=== PATIENT | female | born 1965 | race Two or more races ===

== ENCOUNTER 2018-03-29 09:23 | Emergency (ER) | payer MEDICAID ==
[~2018-03-29] VITALS: Ht 154.9 cm; Wt 72.6 kg
[2018-03-29 09:31] VITALS: BP 168/88
[2018-03-29 10:10] LABS: Basophils # (auto) 0 uL; Basophils % (auto) 0.4 % (0.0-2.0); Eosinophils # (auto) 0.1 uL; Hematocrit 39.4 % (36.0-46.0); Hemoglobin 13.5 g/dL (12.2-16.2); Lymphocytes # (auto) 1.4 uL; Lymphocytes % (auto) 20.7 % (10.0-50.0); Mean Corpuscular Hemoglobin 28.4 pg (28.0-32.0); Mean Corpuscular Hgb Conc. 34.3 g/dL (32.0-36.0); Mean Corpuscular Volume 82.6 fL (80.0-100.0); Monocytes # (auto) 0.4 uL; Monocytes % (auto) 6.3 % (0.0-12.0); Neutrophils # (auto) 4.9 uL; Neutrophils % (auto) 71.6 % (37.0-80.0); Nucleated Red Blood Cells % 0.1 %; Platelet Count (auto) 229 10^3/uL (140-450); Red Blood Cells 4.77 10^6/uL (4.0-5.20); Red Cell Distribution Width 14.5 % (11.8-14.3); White Blood Cell 6.9 10^3/uL (4.4-10.8)
[2018-03-29 10:35] LABS: Alanine Aminotransferase 25 U/L (13-56); Albumin 3.7 g/dL (3.4-5.0); Alkaline Phosphatase 124 U/L (45-117); Anion Gap 9 (5-15); Aspartate Aminotransferase 20 U/L (15-37); BUN/Creatinine Ratio 22.7; Bilirubin, Total 0.2 mg/dL (0.2-1.0); Blood Urea Nitrogen 17 mg/dL (7-18); Calcium 9.4 mg/dL (8.5-10.1); Carbon Dioxide 21 mmol/L (21-32); Chloride 108 mmol/L (98-107); GFR African American 104 mL/min; GFR Non-African American 86 mL/min; Glucose 115 mg/dL (74-106); Magnesium 2.5 mg/dL (1.6-2.6); Potassium 3.8 mmol/L (3.5-5.1); Sodium 138 mmol/L (136-145); Total Protein 7.9 g/dL (6.4-8.2)
[2018-03-29] MEDS ORDERED: ONDANSETRON ODT 4 MG TAB PO ONE (11:30)
[2018-03-29] MEDS ORDERED: MECLIZINE HCL 25 MG TAB PO ONE (11:30)
== END 2018-03-29 11:47 | disposition home or self-care (01) ==
LOC: EDBD 09:23 → ER 09:23
DX: F41.1 Generalized anxiety disorder (principal)
CPT/HCPCS: 36415; 70450; 71046; 80053; 81002; 83735; 84484; 85025; 99285; J8597; Q0162

== ENCOUNTER 2022-03-11 15:31 | Inpatient (IN) | payer MEDICAID ==
[~2022-03-11] VITALS: Ht 154.9 cm; Wt 80.9 kg
[2022-03-11] MEDS ORDERED: SODIUM CHLORIDE 0.9% 1,000 ML IVB ONE (16:15)
[2022-03-11] MEDS ORDERED: MORPHINE SULFATE 4 MG/ML SYR/VIAL IV ONE (16:15)
[2022-03-11] MEDS ORDERED: ONDANSETRON HCL 4 MG/2 ML VIAL IV ONE (16:15)
[2022-03-11] MEDS ORDERED: IOHEXOL 300 MG/ML 100ML BOTTLE IJ ONE ×2 (16:22→20:58)
[2022-03-11 16:46] LABS: Urine Bacteria FEW /hpf (None Seen); Urine Blood Negative /uL (Negative); Urine Mucus FEW (None Seen); Urine WBC 2 /hpf (0 - 5)
[2022-03-11 16:52] LABS: Basophils # (auto) 0 10 ^3/uL (0-0.2); Basophils % (auto) 0.2 % (0.0-2.0); Eosinophils # (auto) 0 10 ^3/uL (0-0.8); Eosinophils % (auto) 0.3 % (0.0-7.0); Hematocrit 42.9 % (36.0-46.0); Hemoglobin 14.3 g/dL (12.2-16.2); Lymphocytes # (auto) 1.2 10 ^3/uL (0.4-5.4); Lymphocytes % (auto) 10.6 % (10.0-50.0); Mean Corpuscular Hemoglobin 28.3 pg (28.0-32.0); Mean Corpuscular Hgb Conc. 33.4 g/dL (32.0-36.0); Mean Corpuscular Volume 84.8 fL (80.0-100.0); Monocytes # (auto) 0.6 10 ^3/uL (0-1.3); Monocytes % (auto) 5.4 % (0.0-12.0); Neutrophils # (auto) 9.2 10 ^3/uL (1.6-8.6); Neutrophils % (auto) 83.5 % (37.0-80.0); Red Blood Cells 5.06 10^6/uL (4.0-5.20); Red Cell Distribution Width 13.1 % (11.8-14.3)
[2022-03-11 17:09] LABS: INR 0.96 (0.9-1.15); Partial Thromboplastin Time 29.1 sec (24.6-33.4)
[2022-03-11 17:15] LABS: Bilirubin, Total 0.4 mg/dL (0.2-1.0); Total Protein 7.7 g/dL (6.4-8.2)
[2022-03-11 17:17] LABS: BUN/Creatinine Ratio 22.7; Potassium 3.8 mmol/L (3.5-5.1)
[2022-03-11 17:18] LABS: Albumin 3.5 g/dL (3.4-5.0); Magnesium 2.3 mg/dL (1.6-2.6)
[2022-03-11] MEDS ORDERED: cefTRIAXone 1GM/50ML D5W 50 ML IV ONE (21:30)
[2022-03-11] MEDS ORDERED: metroNIDAZOLE 500MG/100ML 100 ML IV ONE (21:30)
[2022-03-12] MEDS ORDERED: ONDANSETRON HCL 4 MG/2 ML VIAL IV PRN (00:45)
[2022-03-12] MEDS ORDERED: MORPHINE SULFATE INJ 2 MG/ml SYRG IV PRN (00:45)
[2022-03-12] MEDS: SODIUM CHLORIDE 0.9% 1,000 ML IV SCH ×3 (00:51→21:17)
[2022-03-12 04:01] VITALS: BP 116/49
[2022-03-12 05:00] VITALS: BP 116/49
[2022-03-12] MEDS: metroNIDAZOLE 500MG/100ML 100 ML IV SCH ×3 (05:27→22:00)
[2022-03-12 09:00] VITALS: BP 117/60
[2022-03-12] MEDS: PANTOPRAZOLE 40 MG/10 ML VIAL INJ IV SCH (10:02)
[2022-03-12 13:00] VITALS: BP 100/42
[2022-03-12 17:00] VITALS: BP 115/55
[2022-03-12] MEDS: cefTRIAXone 1GM/50ML D5W 50 ML IV SCH (21:16)
[2022-03-12 22:00] VITALS: BP 113/53
[2022-03-13 05:00] VITALS: BP 136/68
[2022-03-13] MEDS: metroNIDAZOLE 500MG/100ML 100 ML IV SCH ×3 (05:30→21:39)
[2022-03-13 06:15] LABS: Basophils # (auto) 0 10 ^3/uL (0-0.2); Basophils % (auto) 0.5 % (0.0-2.0); Eosinophils # (auto) 0.1 10 ^3/uL (0-0.8); Eosinophils % (auto) 2.1 % (0.0-7.0); Hematocrit 36.9 % (36.0-46.0); Hemoglobin 12.1 g/dL (12.2-16.2); Lymphocytes # (auto) 1.5 10 ^3/uL (0.4-5.4); Lymphocytes % (auto) 25.7 % (10.0-50.0); Mean Corpuscular Hemoglobin 27.9 pg (28.0-32.0); Mean Corpuscular Hgb Conc. 32.7 g/dL (32.0-36.0); Mean Corpuscular Volume 85.2 fL (80.0-100.0); Monocytes # (auto) 0.6 10 ^3/uL (0-1.3); Monocytes % (auto) 10.2 % (0.0-12.0); Neutrophils # (auto) 3.7 10 ^3/uL (1.6-8.6); Neutrophils % (auto) 61.5 % (37.0-80.0); Nucleated Red Blood Cells % 0.1 %; Red Blood Cells 4.33 10^6/uL (4.0-5.20); Red Cell Distribution Width 13.1 % (11.8-14.3)
[2022-03-13 06:38] LABS: Albumin 2.7 g/dL (3.4-5.0); Calcium 9.3 mg/dL (8.5-10.1); Potassium 3.5 mmol/L (3.5-5.1)
[2022-03-13 06:42] LABS: Bilirubin, Total 0.2 mg/dL (0.2-1.0)
[2022-03-13 08:00] VITALS: BP 116/58
[2022-03-13 09:00] VITALS: BP 116/58
[2022-03-13] MEDS: PANTOPRAZOLE 40 MG/10 ML VIAL INJ IV SCH (09:37)
[2022-03-13] MEDS: SODIUM CHLORIDE 0.9% 1,000 ML IV SCH ×2 (12:31→23:49)
[2022-03-13 13:00] VITALS: BP 110/71
[2022-03-13 16:38] VITALS: BP 143/63
[2022-03-13] MEDS: cefTRIAXone 1GM/50ML D5W 50 ML IV SCH (21:07)
[2022-03-13 22:00] VITALS: BP 135/69
[2022-03-13] MEDS: CHOLESTYRAMINE 4 GM POWDER PO SCH (23:49)
[2022-03-14 05:00] VITALS: BP 137/52
[2022-03-14] MEDS: metroNIDAZOLE 500MG/100ML 100 ML IV SCH ×2 (06:15→13:45)
[2022-03-14 08:10] VITALS: BP 131/64
[2022-03-14 09:00] VITALS: BP 131/64
[2022-03-14] MEDS: PANTOPRAZOLE 40 MG/10 ML VIAL INJ IV SCH (09:50)
[2022-03-14] MEDS: SODIUM CHLORIDE 0.9% 1,000 ML IV SCH (11:40)
[2022-03-14] MEDS: CHOLESTYRAMINE 4 GM POWDER PO SCH (11:40)
[2022-03-14 13:00] VITALS: BP 151/63
[2022-03-14] MEDS ORDERED: LOPERAMIDE HCL 2 MG CAP/TAB PO ONE (14:45)
[2022-03-14] MEDS ORDERED: LOPERAMIDE HCL 2 MG CAP/TAB PO PRN (14:45)
[2022-03-14] MEDS ORDERED: AMOX-277 PO (15:34)
[2022-03-14 16:32] VITALS: BP 151/63
[2022-03-14 17:00] VITALS: BP 110/50
== END 2022-03-14 18:59 | disposition home or self-care (01) | DRG 245 ==
LOC: ER 15:31 → OVERFLOW 03-12 00:36 → WEST WING 03-12 03:23
PROVIDERS: ADMIT Nurse Practitioner; ATTEND Internal Medicine
DX: K51.00 Ulcerative (chronic) pancolitis without complications (principal); E87.2 Acidosis; E88.09 Other disorders of plasma-protein metabolism, not elsewhere classified; D72.829 Elevated white blood cell count, unspecified; E66.01 Morbid (severe) obesity due to excess calories; Z20.822 Contact with and (suspected) exposure to COVID-19; E86.0 Dehydration; Z68.33 Body mass index [BMI] 33.0-33.9, adult; Z90.12 Acquired absence of left breast and nipple
CPT/HCPCS: 36415; 74177; 80053; 81001; 83605; 83690; 83735; 85025; 85048; 85610; 85730; 87045; 87427; 87493; 96361; 96365; 96367; 96375; C9113; G0378; J0696; J2405; J3490

== ENCOUNTER 2022-05-11 13:06 | Emergency (ER) | payer MEDICAID ==
[~2022-05-11] VITALS: Ht 154.9 cm; Wt 75.0 kg
[~2022-05-11 13:06] MED LIST: AMOX-277 PO
[2022-05-11 14:13] LABS: Basophils # (auto) 0 10 ^3/uL (0-0.2); Basophils % (auto) 0.6 % (0.0-2.0); Eosinophils # (auto) 0 10 ^3/uL (0-0.8); Eosinophils % (auto) 0.5 % (0.0-7.0); Hematocrit 40.2 % (36.0-46.0); Hemoglobin 13.6 g/dL (12.2-16.2); Lymphocytes % (auto) 17.3 % (10.0-50.0); Mean Corpuscular Hemoglobin 28.5 pg (28.0-32.0); Mean Corpuscular Hgb Conc. 33.9 g/dL (32.0-36.0); Mean Corpuscular Volume 84.1 fL (80.0-100.0); Monocytes # (auto) 0.2 10 ^3/uL (0-1.3); Neutrophils # (auto) 4.7 10 ^3/uL (1.6-8.6); Neutrophils % (auto) 77.6 % (37.0-80.0); Red Blood Cells 4.78 10^6/uL (4.0-5.20); White Blood Cell 6.1 10^3/uL (4.4-10.8)
[2022-05-11 15:37] LABS: Albumin 3.8 g/dL (3.4-5.0); Calcium 10.2 mg/dL (8.5-10.1); Potassium 4.2 mmol/L (3.5-5.1)
[2022-05-11 15:41] LABS: BUN/Creatinine Ratio 19.1; Bilirubin, Total 0.2 mg/dL (0.2-1.0); Total Protein 7.7 g/dL (6.4-8.2)
[2022-05-11] MEDS ORDERED: MECLIZINE HCL 25 MG TAB PO ONE (21:45)
[2022-05-11] MEDS ORDERED: KETOROLAC TROMETH 30 MG/ML 1ML VIAL IM ONE (21:45)
[2022-05-11] MEDS ORDERED: MECL25TA18 PO (21:50)
[2022-05-11 22:20] VITALS: BP 154/73
== END 2022-05-11 21:55 | disposition home or self-care (01) ==
LOC: ER 13:06
DX: R42 Dizziness and giddiness (principal); F43.0 Acute stress reaction
CPT/HCPCS: 36415; 70496; 71045; 80053; 84484; 85025; 93005; 96372; 99285; J1885; J8597

== ENCOUNTER 2024-07-18 14:59 | Emergency (ER) | payer MEDICAID ==
[~2024-07-18] VITALS: Ht 149.9 cm; Wt 76.1 kg
[~2024-07-18 14:59] MED LIST changes: -AMOX-277 PO; +AMOX875T4 PO; +MECL-90 PO
[2024-07-18 15:59] VITALS: BP 135/65; PULSE 76; RESP 18; TEMP 97.7; O2SAT 98
--- NOTE | 2024-07-18 16:07 | ED.PDOC ---
Back pain HPI HPI Comments A 59 YEAR OLD FEMALE PRESENTS TO THE ED WITH COMPLAINT OF BACK PAIN [id number]. PER PT, PAIN BEGAN WHILE SHE WAS WASHING DISHES AND SHE SUDDENLY FELT A "PULSE" AND STARTED HAVING LOW BACK PAIN. LOW BACK PAIN IS NON-RADIATING. MOVEMENT AND PHYSICAL ACTIVITY INCREASES LOW BACK PAIN. PT DENIES TRAUMA. PATIENT DENIES DYSURIA, FLANK PAIN, FEVER, CHILLS, SHORTNESS OF BREATH, CHEST PAIN, ABDOMINAL PAIN, NAUSEA, VOMITING, HEADACHE, OR OTHER COMPLAINTS. NO OTHER SYMPTOMS OR MODIFYING FACTORS AT THIS TIME. PATIENT IS ALERT, ORIENTED X 4, AND HAS STEADY GAIT. Chief Complaint: Back Pain Time Seen by MD: 15:44 Primary Care Provider: MALLORY Reviewed Notes: Nurses Notes, Medications, Allergies Allergies: Coded Allergies: NO KNOWN ALLERGIES (Unverified , 10/31/11) Home Meds Active Scripts Meclizine Hcl (Meclizine Hcl) 25 Mg Tab, 25 MG PO BID for 7 Days, #30 MG use as needed every 6 hours Prov:BREANNA MCKINLEY MD 05/11/22 Amoxicillin & Pot Clavulanate (Amoxicillin/Potassium Cla) 875 Mg Tab, 875 MG PO BID, #20 TAB Prov:TACO WARE MD 03/14/22 Information Source: Patient, Spouse Mode of Arrival: Ambulatory Timing: Weeks Duration: Since onset, Days Location of Back pain: (B) Lower back Severity: Moderate Quality: Sharp Onset: Spontaneous History of: None Modifying Factors: Movement, Twisting, Nothing Associated signs and symptoms: Other (LOW BACK PAIN) Past Medical History PAST MEDICAL HISTORY: Cancer Surgical History: Unknown WAGON DRIVER History: No Pertinent WAGON DRIVER History Family History Family History: Unknown Social History Smoker: Non-Smoker Alcohol: Denies ETOH Use Drugs: Denies Drug Use Lives In: Home Constitutional: denies: chills, diaphoresis, fatigue, fever, malaise, sweats, weakness, others EENTM: denies: blurred vision, double vision, ear bleeding, ear discharge, ear drainage, ear pain, ear ringing, eye pain, eye redness, hearing loss, mouth pain, mouth swelling, nasal discharge, nose bleeding, nose congestion, nose pain, photophobia, tearing, throat pain, throat swelling, voice changes, others Respiratory: denies: cough, hemoptysis, orthopnea, SOB at rest, shortness of breath, SOB with excertion, stridor, wheezing, others Cardiovascular: denies: chest pain, dizzy spells, diaphoresis, Dyspnea on exertion, edema, irregular heart beat, left arm pain, lightheadedness, palpitations, PND, syncope, others Gastrointestinal: denies: abdomen distended, abdominal pain, blood streaked bowels, constipated, diarrhea, dysphagia, difficulty swallowing, hematemesis, melena, nausea, poor appetite, poor fluid intake, rectal bleeding, rectal pain, vomiting, others Genitourinary: denies: abnormal vagina bleeding, burning, dyspareunia, dysuria, flank pain, frequency, hematuria, incontinence, pain, , vagina discharge, urgency, others Neurological: denies: dizziness, fainting, headache, left sided numbness, left sided weakness, numbness, paresthesia, pre-existing deficit, right sided numbness, right sided weakness, seizure, speech problems, tingling, tremors, weakness, others Musculoskeletal: reports: back pain, muscle pain; denies: gout, joint pain, joint swelling, muscle stiffness, neck pain, others Integumetry: denies: bruises, change in color, change in hair/nails, dryness, laceration, lesions, lumps, rash, wounds, others Allergic/Immunocompromised: denies: Difficulty Healing, Frequent Infections, Hives, Itching, others Hematologic/Lymphatic: denies: anemia, blood clots, easy bleeding, easy bruising, swollen glands, others Endocrine: denies: excessive hunger, excessive sweating, excessive thirst, excessive urination, flushing, intolerance to cold, intolerance to heat, unexplained weight gain, unexplained weight loss, others Psychiatric: denies: anxiety, bipolar disorder, depression, hopeless, panic disorder, schizophrenia, sleepless, suicidal, others All Other Systems: Reviewed and Negative Physical Exam General Appearance: No Apparent Distress, Normal HEENT: Normal ENT Inspection, PERRL/EOMI, Pharynx Normal, TMs Normal Neck: Full Range of Motion, Non-Tender, Normal, Normal Inspection Respiratory: Chest Non-Tender, Lungs Clear, No Accessory Muscle Use, No Respiratory Distress, Normal Breath Sounds Cardiovascular: No Edema, No JVD, No Murmur, No Gallop, Normal Peripheral Pulses, Regular Rate/Rhythm Breast Exam: Deferred Gastrointestinal: No Organomegaly, Non Tender, No Pulsatile Mass, Normal Bowel Sounds, Soft Genitalia: Deferred Pelvic: Deferred Rectal: Deferred Extremities: No calf tenderness, Normal capillary refill, Normal inspection, Normal range of motion, Non-tender, No pedal edema Musculoskeletal : Location: Bilateral Extremity Location: Back Apperance: Tenderness (AND MUSCLE SPASM ON LOW BACK, NO BONY TENDERNESS, SWELLING AND DEFORMITY. ) Neurologic: Alert, power brake rebuilder II-XII nml as Tested, No Motor Deficits, Normal Affect, Normal Mood, No Sensory Deficits Cerebellar Function: Normal Reflexes: Normal Skin: Dry, Normal Color, Warm Peripheral Pulses: 2+ carotid (R), 2+ carotid (L), 2+ dorsalis pedis (R), 2+ dorsalis pedis (L) Lymphatic: No Adenopathy Was a procedure done? Was a procedure done?: No Back Pain Differential Dx Differential Diagnosis: Musculoskeletal Pain, Strain, Other (DDD OF LOWER BACK ) X-Ray, Labs, Meds, VS Vital Signs Date Time Temp Pulse Resp B/P (MAP) Pulse Ox O2 Delivery O2 Flow Rate FiO2 07/18/24 15:59 97.7 76 18 135/65 (88) 98 97.7 07/18/24 15:59 76 18 98 Room Air* 0 21 07/18/24 15:10 97.7 76 18 135/65 (88) [address] [id number] Ph: [phone] DIAGNOSTIC IMAGING Diagnostic Imaging Report : [id number] Signed PATIENT: RITA FORD ACCT: [id number] UNIT: [id number] : 1965 LOC: ER ROOM / BED: / AGE / SEX: 59 / F ADM STATUS: REG ER SERVICE 1549 ORDERING PHYSICIAN: NEMO GARCIA PROCEDURE(s): LUMB2 - LUMBAR SPINE 3 VIEW REASON: PAIN, NO INJURY ORDER NUMBER(s): [id number], ACCESSION NUMBER(s): [id number] INDICATION: PAIN, NO INJURY TECHNIQUE: 4 views of the lumbar spine were obtained. COMPARISON: None FINDINGS: There are no acute fractures or subluxations. Degenerative disc space narrowing at L5-S1 and L4-L5. Suggestion of neural foraminal stenosis at L4-L5 and L5-S1. Moderate volume colonic stool. IMPRESSION: No acute fracture or subluxation. ATED BY: MINOR CHEN MD DICTATED DATE/TIME: 07/18/24 163 SIGNED BY: MINOR CHEN MD SIGNED DATE/TIME: 07/18/24 163 CC: X-Ray, Labs, Meds, VS Comment COURSE: EXTERNAL MEDICAL RECORDS REVIEWED: [NONE] INDEPENDENT HISTORIANS: [NONE] SOCIAL DETERMINANTS OF HEALTH: [NONE] LABS ORDERED: NONE REVIEWED AND INTERPRETED RESULTS: NONE IMAGING ORDERED: L-SPINE X-RAY NORMAL X RAY RESULT: INTERPRETED BY ME. DEGENERATIVE DISC DISEASE OF L4-L5 AND L5-S1. TREATMENTS ORDERED: TYLENOL 1000GM PO PROCEDURES PERFORMED: NONE CRITICAL CARE TIME: NONE I HAVE DISCUSSED THE PATIENT WITH THE ATTENDING PHYSICIAN DR. SULEMAN BALLARD AND SHE AGREES WITH THE PATIENT'S PLAN OF CARE AND DISPOSITION. GIVEN THE HISTORY AND PRESENT ILLNESS OF THE PATIENT, AFTER REVIEWING LABS, NIKOLAI GING, AND COURSE OF TREATMENT ADMINISTERED DURING THEIR ED VISIT, THERE IS LOW SUSPICION FOR RED FLAG FINDINGS. BASED ON HISTORY OF PRESENT ILLNESS, AND PHYSICAL EXAM, PATIENT WILL BE DISCHARGED HOME. DISCUSSED PLAN FOR DISCHARGE HOME WITH RX. MEDICATION WARNINGS GIVEN. SHARED DECISION MAKING: DISCUSSED WITH PATIENT THAT THEIR WORKUP WAS NORMAL. PATIENT INSTRUCTED TO FOLLOW UP WITH PRIMARY CARE PROVIDER IN 1-2 DAYS FOR RE- EVALUATION OF SYMPTOMS. PATIENT VERBALIZES UNDERSTANDING TO RETURN TO ED FOR NEW OR WORSENING SYMPTOMS OR IF FOLLOW UP WITH PCP CANNOT BE OBTAINED. PATIENT FEELS COMFORTABLE GOING HOME AT THIS TIME. ALL QUESTIONS ADDRESSED AT TIME OF DISCHARGE. Time of 1ST Reevaluation: 17:00 Reevaluation 1ST: Improved Patient Education/Counseling: Diagnosis, Treatment, Need For Follow Up Family Education/Counseling: Diagnosis, Treatment, Need For Follow Up Medical Screening: No EMC Exist At This Time Departure 1 Departure Time of Disposition: 17:00 Impression: Primary Impression: DDD (degenerative disc disease), lumbosacral Qualified Codes: M51.370 - Other intervertebral disc degeneration, lumbosacral region with discogenic back pain only Disposition: HOME / SELF CARE / HOMELESS Condition: Stable Additional Instructions: FOLLOW-UP WITH PCP IN 1 TO 2 DAYS. TAKE MEDICATIONS PRESCRIBED. RETURN TO ED FOR ANY NEW OR WORSENING SYMPTOMS. e-Prescriptions Methocarbamol (Methocarbamol) 750 Mg Tab 750 MG PO BID, #20 TAB Prov: NEMO GARCIA 07/18/24 Ibuprofen (Ibuprofen) 800 Mg Tab 1 TAB PO TID, #30 TAB Prov: NEMO GARCIA 07/18/24 Discharged With: Self, Spouse Critical Care Note Critical Care Time?: No Stability Stability form required: No Heart Score Heart Score: Heart Score Response (Comments) Value History N/A 0 EKG N/A 0 Age N/A 0 Risk Factors N/A 0 Troponin N/A 0 Total 0 I personally scribed for NEMO GARCIA ([email or web address]) on 07/18/24 at 16:07. Electronically submitted by Joceline Denton ([place]). I personally scribed for NEMO GARCIA ([email or web address]) on 07/18/24 at 16:41. Electronically submitted by Joceline Denton ([place]). NEMO GARCIA Jul 18, 2024 16:07
--- NOTE | 2024-07-18 16:34 | DVH ---
INDICATION: PAIN, NO INJURY TECHNIQUE: 4 views of the lumbar spine were obtained. COMPARISON: None FINDINGS: There are no acute fractures or subluxations. Degenerative disc space narrowing at L5-S1 and L4-L5. Suggestion of neural foraminal stenosis at L4- L5 and L5-S1. Moderate volume colonic stool. IMPRESSION: No acute fracture or subluxation.
[2024-07-18] MEDS ORDERED: METH-1182 PO (16:55)
[2024-07-18] MEDS ORDERED: IBUP-1456 PO (16:55)
[2024-07-18] MEDS: ACETAMINOPHEN 500 MG TAB or CAP PO ONE (17:05)
== END 2024-07-18 17:15 | disposition home or self-care (01) ==
LOC: ER 14:59
DX: M51.379 Other intervertebral disc degeneration, lumbosacral region without mention of lumbar back pain or lower extremity pain (principal); Z85.9 Personal history of malignant neoplasm, unspecified; Z79.899 Other long term (current) drug therapy
CPT/HCPCS: 72100

== ENCOUNTER 2025-04-11 16:50 | Emergency (ER) | payer MEDICAID ==
[~2025-04-11] VITALS: Ht 154.9 cm; Wt 75.1 kg
[~2025-04-11 16:50] MED LIST changes: +IBUP-1456 PO; +METH-1182 PO
--- NOTE | 2025-04-11 17:36 | ED.PDOC ---
GI ASSESSMENT HPI Comments This is a 59-year-old female with past medical history of breast cancer (status post surgery in 1998), colitis came to the hospital due to nausea and vomiting since 5 days. She also reports of dizziness and decreased oral intake. She denies fever, chest pain, shortness of breath, sweating, palpitation, or any recent unusual food intake. Chief Complaint: Nausea/Vomiting Time Seen by MD: 17:11 Primary Care Provider: MALLORY Allergies: Coded Allergies: NO KNOWN ALLERGIES (Unverified , 10/31/11) Home Meds Active Scripts Methocarbamol (Methocarbamol) 750 Mg Tab, 750 MG PO BID, #20 TAB Prov:NEMO GARCIA 07/18/24 Ibuprofen (Ibuprofen) 800 Mg Tab, 1 TAB PO TID, #30 TAB Prov:NEMO GARCIA 07/18/24 Meclizine Hcl (Meclizine Hcl) 25 Mg Tab, 25 MG PO BID for 7 Days, #30 MG use as needed every 6 hours Prov:BREANNA MCKINLEY MD 05/11/22 Amoxicillin & Pot Clavulanate (Amoxicillin/Potassium Cla) 875 Mg Tab, 875 MG PO BID, #20 TAB Prov:TACO WARE MD 03/14/22 Mode of Arrival: Ambulatory Past Medical History PAST MEDICAL HISTORY: Cancer Surgical History: Unknown INVENTORY ASSOCIATE History: No Pertinent INVENTORY ASSOCIATE History Family History Family History: Unknown Social History Smoker: Non-Smoker Alcohol: Denies ETOH Use Drugs: Denies Drug Use Lives In: Home Physical Exam General Appearance: No Apparent Distress, Normal HEENT: Normal ENT Inspection, Pharynx Normal, TMs Normal Neck: Full Range of Motion, Non-Tender, Normal, Normal Inspection Respiratory: Chest Non-Tender, Lungs Clear, No Accessory Muscle Use, No Respiratory Distress, Normal Breath Sounds Cardiovascular: No Edema, No JVD, No Murmur, No Gallop, Normal Peripheral Pulses, Regular Rate/Rhythm Breast Exam: Deferred Gastrointestinal: No Organomegaly, Non Tender, No Pulsatile Mass, Normal Bowel Sounds, Soft Genitalia: Deferred Pelvic: Deferred Rectal: Deferred Extremities: No calf tenderness, Normal capillary refill, Normal inspection, Normal range of motion, Non-tender, No pedal edema Neurologic: Alert, oracle drm consultant II-XII nml as Tested, No Motor Deficits, Normal Affect, Normal Mood, No Sensory Deficits Cerebellar Function: Normal Reflexes: Normal Skin: Dry, Normal Color, Warm Lymphatic: No Adenopathy Was a procedure done? Was a procedure done?: No GI differential Dx Differential Diagnosis: Gastroenteritis, UTI X-Ray, Labs, Meds, VS Vital Signs Date Time Temp Pulse Resp B/P (MAP) Pulse Ox O2 Delivery O2 Flow Rate FiO2 04/11/25 20:13 57 18 99 Room Air 04/11/25 20:13 97.8 57 18 148/63 (91) 99 97.8 04/11/25 16:51 97.6 62 15 131/76 97 97.6 Lab Test 04/11/25 20:00 04/11/25 17:47 04/11/25 17:03 Range/Units Urine Color Light-yellow Yellow Urine Clarity Turbid H Clear Urine pH 7.0 5.0-9.0 Urine Specific [place] 1.022 1.001-1.035 Urine Protein Negative Negative Urine Ketones Negative Negative Urine Blood Negative Negative /uL Urine Nitrite Negative Negative Urine Bilirubin Negative Negative Urine Urobilinogen Normal Negative mg/dL Urine Leukocyte Esterase 1+ Negative /uL Urine RBC 1 0 - 4 /hpf Urine Microscopic WBC 8 H 0-5 /HPF Urine Squamous Epithelial Cells Few <5 /hpf Urine Bacteria Few H None Seen /hpf Urine Glucose Normal Normal mg/dL White Blood Count 5.6 4.4-10.8 10^3/uL Red Blood Count 4.65 4.0-5.20 10^6/uL Hemoglobin 13.8 12.2-16.2 g/dL Hematocrit 40.0 36.0-46.0 % Mean Corpuscular Volume 86.1 80.0-100.0 fL Mean Corpuscular Hemoglobin 29.7 28.0-32.0 pg Mean Corpuscular Hemoglobin Concent 34.5 32.0-36.0 g/dL Red Cell Distribution Width 13.0 11.8-14.3 % Platelet Count 227 140-450 10^3/uL Mean Platelet Volume 8.2 6.9-10.8 fL Neutrophils (%) (Auto) 59.4 37.0-80.0 % Lymphocytes (%) (Auto) 31.3 10.0-50.0 % Monocytes (%) (Auto) 6.4 0.0-12.0 % Eosinophils (%) (Auto) 2.6 0.0-7.0 % Basophils (%) (Auto) 0.3 0.0-2.0 % Neutrophils # (Auto) 3.3 1.6-8.6 10 ^3/uL Lymphocytes # (Auto) 1.8 0.4-5.4 10 ^3/uL Monocytes # (Auto) 0.4 0-1.3 10 ^3/uL Eosinophils # (Auto) 0.1 0-0.8 10 ^3/uL Basophils # (Auto) 0 0-0.2 10 ^3/uL Nucleated Red Blood Cells 0.1 % Sodium Level 141 136-145 mmol/L Potassium Level 4.2 3.5-5.1 mmol/L Chloride Level 109 H 98-107 mmol/L Carbon Dioxide Level 23 20-31 mmol/L Anion Gap 9 5-15 Blood Urea Nitrogen 9 9-23 mg/dL Creatinine 0.68 0.550-1.02 mg/dL Glomerular Filtration Rate Calc 100 >90 mL/min BUN/Creatinine Ratio 13.2 10.0-20.0 Serum Glucose 93 74-106 mg/dL Calcium Level 10.2 8.7-10.4 mg/dL Total Bilirubin 0.3 0.2-1.0 mg/dL Aspartate Amino Transferase (AST) 29 13-40 U/L Alanine Aminotransferase (ALT) 28 7-40 U/L Alkaline Phosphatase 152 H 46-116 U/L Troponin I High Sensitivity < 3 L </=34 ng/L Total Protein 7.2 5.7-8.2 g/dL Albumin 4.3 3.2-4.8 g/dL POC Glucose 95 70-106 mg/dl Current Medications Medications (Trade) Dose Ordered Sig/Sabrina Route Start Time Stop Time Status Last Admin Sodium Chloride 1,000 ml @ 1,000 mls/hr Q1H ONCE IV 04/11/25 17:45 04/11/25 18:44 DC 04/11/25 20:13 Time of 1ST Reevaluation: 19:00 Reevaluation 1ST: Improved Patient Education/Counseling: Diagnosis, Treatment, Prognosis, Need For Follow Up Family Education/Counseling: Diagnosis, Treatment, Prognosis, Need For Follow Up Comments Patient came to the hospital due to nausea, dizziness and decreased oral intake. Patient was vitally within normal limits. The patient was given IV fluid and ondansetron. CMP and CBC checked, within normal limits. Urinalysis showed UTI picture. Patient counseled regarding finding, Patient discharged with Keflex 500 mg b.i.d. for 7 days. Follow up with PCP. SEPSIS Sepsis Screen Date sepsis recognized/suspect: Apr 11, 2025 Time Sepsis recognized/suspect: 1652 Recent Procedure: No On Antibiotic Therapy: No Respiratory Rate >20: No Heart Rate >90: No Temp<36 C (96.8 F) or >38.3 C: No SBP <90 or MAP <65 mmHG: No New Acute Mental Status Change: No Is the patient on CPAP, BIPAP,: No Vital Signs Date Time Temp Pulse Resp B/P (MAP) Pulse Ox O2 Delivery O2 Flow Rate FiO2 04/11/25 20:13 57 18 99 Room Air 04/11/25 20:13 97.8 57 18 148/63 (91) 99 97.8 04/11/25 16:51 97.6 62 15 131/76 97 97.6 Laboratory Tests Test 04/11/25 17:47 White Blood Count 5.6 10^3/uL (4.4-10.8) Medications Medications Dose Ordered Sig/Sabrina Route Start Time Stop Time Status Last Admin Dose Admin Sodium Chloride 1,000 ml @ 1,000 mls/hr Q1H ONCE IV 04/11/25 17:45 04/11/25 18:44 DC 04/11/25 20:13 Departure 1 Departure Time of Disposition: 21:53 Impression: Primary Impression: UTI (urinary tract infection) Disposition: 01 HOME / SELF CARE / HOMELESS Condition: Fair Critical Care Note Critical Care Time?: No Stability Stability form required: No Heart Score Heart Score: Heart Score Response (Comments) Value History N/A 0 EKG N/A 0 Age N/A 0 Risk Factors N/A 0 Troponin N/A 0 Total 0 MARISELA RODRIGUEZ RESDIENT Apr 11, 2025 17:36
--- NOTE | 2025-04-11 17:37 | ECG ---
[facility] Test Date: 2025-04-11 Test Time: 16:58:36 Pat Name: RITA FORD Department: ED Room: Gender: F Security Services Manager: mel : 1965 Requested By: MARISELA RODRIGUEZ Order Number: [id number] Reading MD: Kwame Montana Measurements Intervals [place] Rate: 57 P: 38 MT: 129 QRS: 58 QRSD: 98 T: 40 QT: 409 QTc: 399 Interpretive Statements Sinus rhythm Electronically Signed On 04-12-2025 14:28:06 PDT by Kwame Montana Please click the below link to view image of tracing.
[2025-04-11] MEDS ORDERED: ONDANSETRON HCL 4 MG/2 ML VIAL IV ONE (17:45)
[2025-04-11 18:05] LABS: Hematocrit 40.0 % (36.0-46.0); Hemoglobin 13.8 g/dL (12.2-16.2); Mean Corpuscular Hemoglobin 29.7 pg (28.0-32.0); Mean Corpuscular Volume 86.1 fL (80.0-100.0); Nucleated Red Blood Cells % 0.1 %
[2025-04-11 18:20] LABS: Alanine Aminotransferase 28 U/L (7-40); Albumin 4.3 g/dL (3.2-4.8); Anion Gap 9 (5-15); BUN/Creatinine Ratio 13.2 (10.0-20.0); Calcium 10.2 mg/dL (8.7-10.4); Carbon Dioxide 23 mmol/L (20-31); Glucose 93 mg/dL (74-106); Potassium 4.2 mmol/L (3.5-5.1); Sodium 141 mmol/L (136-145); Total Protein 7.2 g/dL (5.7-8.2)
[2025-04-11 18:25] LABS: Alkaline Phosphatase 152 U/L (46-116); Bilirubin, Total 0.3 mg/dL (0.2-1.0); Blood Urea Nitrogen 9 mg/dL (9-23); Chloride 109 mmol/L (98-107)
[2025-04-11] MEDS: SODIUM CHLORIDE 0.9% 1,000 ML IV ONE (20:13)
[2025-04-11 20:37] LABS: Urine Protein, UAD Negative (Negative)
[2025-04-11] MEDS ORDERED: CEPH500C PO (22:00)
[2025-04-11 22:50] VITALS: BP 137/84; PULSE 86; RESP 18; TEMP 98.6; O2SAT 98
== END 2025-04-11 22:55 | disposition home or self-care (01) ==
LOC: ER 16:50
DX: N39.0 Urinary tract infection, site not specified (principal); Z85.3 Personal history of malignant neoplasm of breast; Z79.1 Long term (current) use of non-steroidal anti-inflammatories (NSAID); Z79.899 Other long term (current) drug therapy
CPT/HCPCS: 36415; 80053; 81001; 82947; 84484; 85025; 93005; 96360; 99284; J7030; 82962; J2405